=== PATIENT | female | born 1995 | race Caucasian/White ===

== ENCOUNTER 2016-06-04 13:08 | Emergency (ER) | payer SELFPAY ==
[~2016-06-04] VITALS: Ht 165.1 cm; Wt 54.4 kg
[2016-06-04 13:10] VITALS: BP 117/65
[2016-06-04] MEDS ORDERED: DOXYCYCLINE HYCLATE (100 MG) 100 MG TABLET ONE (13:49)
[2016-06-04] MEDS ORDERED: CEFTRIAXONE 500 MG VIAL ONE (13:50)
[2016-06-04] MEDS ORDERED: LIDOCAINE /MPF 1% VIAL 5 ML VIAL ONE (13:50)
[2016-06-04] MEDS ORDERED: DOXYCYCLINE HYCLATE (100 MG) 100 MG TABLET PO ONE (14:00)
[2016-06-04] MEDS ORDERED: CEFTRIAXONE 500 MG VIAL IM ONE (14:00)
== END 2016-06-04 14:28 | disposition home or self-care (01) ==
LOC: ER 13:11
DX: A54.9 Gonococcal infection, unspecified (principal); N73.9 Female pelvic inflammatory disease, unspecified; B00.9 Herpesviral infection, unspecified
CPT/HCPCS: A4606; J0696; J3490; Z7610